=== PATIENT | female | born 1980 | race American Indian/Alaskan Native ===

== ENCOUNTER 2016-08-03 00:41 | Emergency (ER) | payer MEDICAID, OTHER ==
[2016-08-03 01:59] LABS: Basophils % (Auto) 1.2 % (0.0-1.8); Eosinophils % (Auto) 3.2 % (0.0-4.3); Hematocrit 31.6 % (30.3-42.9); Mean Corpuscular HGB Conc 32 % (30-34); Mean Corpuscular Volume 76 fl (79-97); Platelet Count 211 K/mm3 (140-440); Red Blood Count 4.17 M/mm3 (3.65-5.03); Red Cell Distribution Width 18.1 % (13.2-15.2)
[2016-08-03 02:01] LABS: Mean Corpuscular Hemoglobin 24 pg (28-32)
[2016-08-03 02:21] LABS: Bacteria,Urine 1+ /HPF (Negative); Bilirubin,Urine NEG (Negative); Blood,Urine LG (Negative); Ketones,Urine NEG (Negative); Leukocyte Esterase,Urine NEG (Negative); Mucus,Urine FEW /HPF; Nitrite,Urine NEG (Negative); Urobilinogen,Urine < 2.0 mg/dL (<2.0)
[2016-08-03 02:24] LABS: Albumin 3.4 g/dL (3.9-5); Albumin/Globulin Ratio 1.1 %; BUN/Creatinine Ratio 13.47; Bilirubin,Total 0.3 mg/dL (0.1-1.2); Calcium 8.9 mg/dL (8.4-10.2); Chloride 102.4 mmol/L (98-107); Potassium 3.9 mmol/L (3.6-5.0); Total Protein 6.5 g/dL (6.3-8.2)
[2016-08-03] MEDS ORDERED: CATAPRES ONE (05:30)
[2016-08-03] MEDS ORDERED: CATAPRES PO ONE (05:44)
[2016-08-03] MEDS ORDERED: APRESOLINE IV ONE (09:30)
[2016-08-03] MEDS ORDERED: DILAUDID IV ONE (09:31)
[2016-08-03] MEDS ORDERED: NACL 0.9% 1000 ML 1,000 ML IV ONE (09:31)
[2016-08-03] MEDS ORDERED: ZOFRAN IV ONE (09:31)
--- NOTE | 2016-08-03 09:32 | Emergency Department Report ---
ED General Adult HPI - General Chief complaint: Abdominal Pain Stated complaint: STOMACH PAIN Time Seen by Provider: 08/03/16 09:21 Source: patient Mode of arrival: Ambulatory Limitations: No Limitations - History of Present Illness Initial comments: PMD: Dr Flanagan Renal: Dr Senior This is a 35-year-old female. I evaluated her in the past. Past medical history includes hypertension, diabetes, obesity, seen in November at this facility, found to have renal insufficiency. Has a follow-up in July with a drilling machine operator by the name of Dr. Senior. The patient presents to the ER complaining of abdominal pain. Abdominal pain is mostly ventral and midline, and in the bilateral flanks. It does not radiate anywhere. It increases when she lays flat and supine, it decreases when she is sitting up. She vomited twice, nonbloody and nonbilious. No lower abdominal pain at this time, no vaginal bleeding, no vaginal discharge, denies irritative and obstructive urinary symptoms. No chest pain or shortness of breath. -: Gradual Location: abdomen Severity scale (0 -10): 10 Quality: aching Consistency: intermittent Improves with: other (as per history of present illness) Worsens with: other (as per history of present illness) Associated Symptoms: malaise, nausea/vomiting. denies: chest pain, cough, diaphoresis, fever/chills - Related Data Home Medications Medication Instructions Recorded Confirmed Last Taken Hydrochlorothiazide [HCTZ] 50 mg PO QDAY 08/03/16 08/03/16 Unknown cloNIDine [Catapres] 0.2 mg PO QHS 08/03/16 08/03/16 Unknown Previous Rx's Medication Instructions Recorded Last Taken Type Dicyclomine [Bentyl] 10 mg PO QID PRN #20 capsule 08/03/16 Unknown Rx Famotidine [Pepcid] 20 mg PO QDAY #30 tablet 08/03/16 Unknown Rx Ondansetron [Zofran Odt] 4 mg PO QID PRN #20 tab.rapdis 08/03/16 Unknown Rx amLODIPine [Norvasc] 5 mg PO DAILY #30 tab 08/03/16 Unknown Rx Allergies Allergy/AdvReac Type Severity Reaction Status Date / Time bee pollen Allergy Swelling Verified 11/30/15 02:31 peanut Allergy Swelling Verified 11/30/15 02:31 ED Review of Systems ROS: Stated complaint: STOMACH PAIN Other details as noted in HPI Constitutional: denies: malaise Eyes: denies: eye discharge ENT: denies: epistaxis Cardiovascular: denies: chest pain Gastrointestinal: abdominal pain Genitourinary: denies: urgency, dysuria Musculoskeletal: denies: back pain Skin: denies: lesions Neurological: denies: weakness Psychiatric: denies: anxiety ED Past Medical Hx - Past Medical History Previous Medical History?: Yes Hx Hypertension: Yes Hx Diabetes: Yes Hx COPD: Yes Additional medical history: Obesity. Abd Pn since Nov 2015 - Surgical History Past Surgical History?: Yes Additional Surgical History: C/S x3, HEMORRHOID SURGERY - Social History Smoking Status: Never Smoker Substance Use Type: None - Medications Home Medications: Home Medications Medication Instructions Recorded Confirmed Last Taken Type Dicyclomine [Bentyl] 10 mg PO QID PRN #20 capsule 08/03/16 Unknown Rx Famotidine [Pepcid] 20 mg PO QDAY #30 tablet 08/03/16 Unknown Rx Hydrochlorothiazide [HCTZ] 50 mg PO QDAY 08/03/16 08/03/16 Unknown History Ondansetron [Zofran Odt] 4 mg PO QID PRN #20 tab.rapdis 08/03/16 Unknown Rx amLODIPine [Norvasc] 5 mg PO DAILY #30 tab 08/03/16 Unknown Rx cloNIDine [Catapres] 0.2 mg PO QHS 08/03/16 08/03/16 Unknown History ED Physical Exam - General Limitations: No Limitations General appearance: alert, in no apparent distress, obese - Head Head exam: Present: atraumatic, normocephalic - Eye Eye exam: Present: normal appearance, EOMI. Absent: nystagmus - ENT ENT exam: Present: normal exam, normal orophraynx, mucous membranes moist, normal external ear exam - Neck Neck exam: Present: normal inspection, full ROM. Absent: tenderness, meningismus - Respiratory Respiratory exam: Present: normal lung sounds bilaterally. Absent: respiratory distress, wheezes, rales, rhonchi, stridor, decreased breath sounds - Cardiovascular Cardiovascular Exam: Present: regular rate, normal rhythm, normal heart sounds. Absent: bradycardia, tachycardia, irregular rhythm, systolic murmur, diastolic murmur, rubs, gallop - GI/Abdominal GI/Abdominal exam: Present: soft, tenderness, normal bowel sounds, other (there is mild midline ventral tenderness. There is no rebound, guarding or peritoneal signs. Patient has no right lower quadrant tenderness. There is no right upper quadrant tenderness. There is negative Santana sign. There is negative rovsigs sign.). Absent: distended, guarding, rebound, rigid, pulsatile mass - Extremities Exam Extremities exam: Present: normal inspection, full ROM, normal capillary refill. Absent: tenderness, pedal edema, joint swelling, calf tenderness - Back Exam Back exam: Present: normal inspection, full ROM. Absent: tenderness, CVA tenderness (R), CVA tenderness (L), muscle spasm, paraspinal tenderness, vertebral tenderness - Neurological Exam Neurological exam: Present: alert, oriented X3, normal gait, other (Extraocular movements intact. Tongue midline. No facial droop. Facial sensation intact to light touch in the V1, V2, V3 distribution bilaterally. 5 and 5 strength in 4 extremities.. Sensation is intact to light touch in 4 extremities. ). Absent: motor sensory deficit - Psychiatric Psychiatric exam: Present: normal affect, normal mood - Skin Skin exam: Present: warm, dry, intact, normal color. Absent: rash ED Course Vital Signs 08/03/16 08/03/16 08/03/16 00:50 05:19 05:30 Temperature 98.7 F Pulse Rate 101 H 101 H 101 H Respiratory 20 16 Rate Blood Pressure 235/172 235/160 Blood Pressure 204/144 [Right] O2 Sat by Pulse 100 99 Oximetry 08/03/16 08/03/16 08/03/16 10:02 10:03 10:46 Temperature Pulse Rate 85 Respiratory 16 18 Rate Blood Pressure Blood Pressure 201/144 188/121 [Right] O2 Sat by Pulse 98 98 Oximetry 08/03/16 12:50 Temperature Pulse Rate 91 H Respiratory 23 Rate Blood Pressure Blood Pressure 195/138 [Right] O2 Sat by Pulse 98 Oximetry - Reevaluation(s) Reevaluation #1: 08/03/16 09:54 Differential diagnosis: Obesity, constipation, ventral hernia, incidental worsening renal insufficiency, poorly controlled hypertension, hypertensive urgency Abdominal aortic aneurysm Assessment and plan: 35-year-old female who is found to have worsening renal insufficiency, elevated blood pressure, abdominal pain. She was given clonidine prior to my evaluation. A noncontrast CT scan of the abdomen and pelvis is ordered. Hydromorphone and hydralazine ordered for blood pressure and pain. Reassess after initial data points. Her blood pressure controls improved while in the emergency department, I will discuss with nephrology on- call to determine further management. Reevaluation #2: 08/03/16 11:53 Blood pressure is improved. Case is discussed with covering drilling machine operator, Dr. Ramos Recommends initiation of Norvasc, 5 mg daily, and states he can see the patient tomorrow in the office. Reevaluation #3: 08/03/16 11:57 Percent renal insufficiency is appreciated, patient was noted to have renal insufficiency in November 2015. Renal insufficiency appears to be subacute to chronic, and appears to be gradual. Given that patient has been given follow- up with her drilling machine operator tomorrow, I don't believe she requires admission to the hospital for this. Reevaluation #4: 08/03/16 12:39 CT scan negative. Patient resting comfortably. Patient will be discharged at this time. Instructed to follow-up with nephrology tomorrow. Return precautions are reviewed. ED Medical Decision Making - Lab Data Result diagrams: 08/03/16 01:30 08/03/16 01:30 Vital Signs 08/03/16 08/03/16 08/03/16 00:50 05:19 05:30 Temperature 98.7 F Pulse Rate 101 H 101 H 101 H Respiratory 20 16 Rate Blood Pressure 235/172 235/160 Blood Pressure 204/144 [Right] O2 Sat by Pulse 100 99 Oximetry Lab Results 08/03/16 08/03/16 08/03/16 Range/Units 01:30 01:30 01:30 WBC 6.0 (4.5-11.0) K/mm3 RBC 4.17 (3.65-5.03) M/mm3 Hgb 10.0 L (10.1-14.3) gm/dl Hct 31.6 (30.3-42.9) % MCV 76 L (79-97) fl MCH 24 L (28-32) pg MCHC 32 (30-34) % RDW 18.1 H (13.2-15.2) % Plt Count 211 (140-440) K/mm3 Lymph % (Auto) 25.5 (13.4-35.0) % Wood % (Auto) 6.6 (0.0-7.3) % Eos % (Auto) 3.2 (0.0-4.3) % Baso % (Auto) 1.2 (0.0-1.8) % Lymph # 1.5 (1.2-5.4) K/mm3 Wood # 0.4 (0.0-0.8) K/mm3 Eos # 0.2 (0.0-0.4) K/mm3 Baso # 0.1 (0.0-0.1) K/mm3 Seg Neutrophils % 63.5 (40.0-70.0) % Seg Neutrophils # 3.8 (1.8-7.7) K/mm3 Sodium 141 (137-145) mmol/L Potassium 3.9 (3.6-5.0) mmol/L Chloride 102.4 (98-107) mmol/L Carbon Dioxide 23 (22-30) mmol/L Anion Gap 20 mmol/L BUN 31 H (7-17) mg/dL Creatinine 2.3 H (0.7-1.2) mg/dL Estimated GFR 30 ml/min BUN/Creatinine Ratio 13.47 % Glucose 130 H (65-100) mg/dL Calcium 8.9 (8.4-10.2) mg/dL Magnesium (1.7-2.3) mg/dL Total Bilirubin 0.3 (0.1-1.2) mg/dL AST 16 (5-40) units/L ALT 18 (7-56) units/L Alkaline Phosphatase 75 (35-129) units/L Total Protein 6.5 (6.3-8.2) g/dL Albumin 3.4 L (3.9-5) g/dL Albumin/Globulin Ratio 1.1 % Lipase 50 (13-60) units/L HCG, Qual Negative (Negative) Urine Color (Yellow) Urine Turbidity (Clear) Urine pH (5.0-7.0) Ur Specific [place] (1.003-1.030) Urine Protein (Negative) mg/dL Urine Glucose (UA) (Negative) mg/dL Urine Ketones (Negative) mg/dL Urine Blood (Negative) Urine Nitrite (Negative) Urine Bilirubin (Negative) Urine Urobilinogen (<2.0) mg/dL Ur Leukocyte Esterase (Negative) Urine WBC (Auto) (0.0-6.0) /HPF Urine RBC (Auto) (0.0-6.0) /HPF U Epithel Cells (Auto) (0-13.0) /HPF Urine Bacteria (Auto) (Negative) /HPF Urine Mucus /HPF 08/03/16 08/03/16 Range/Units 01:30 Unknown WBC (4.5-11.0) K/mm3 RBC (3.65-5.03) M/mm3 Hgb (10.1-14.3) gm/dl Hct (30.3-42.9) % MCV (79-97) fl MCH (28-32) pg MCHC (30-34) % RDW (13.2-15.2) % Plt Count (140-440) K/mm3 Lymph % (Auto) (13.4-35.0) % Wood % (Auto) (0.0-7.3) % Eos % (Auto) (0.0-4.3) % Baso % (Auto) (0.0-1.8) % Lymph # (1.2-5.4) K/mm3 Wood # (0.0-0.8) K/mm3 Eos # (0.0-0.4) K/mm3 Baso # (0.0-0.1) K/mm3 Seg Neutrophils % (40.0-70.0) % Seg Neutrophils # (1.8-7.7) K/mm3 Sodium (137-145) mmol/L Potassium (3.6-5.0) mmol/L Chloride (98-107) mmol/L Carbon Dioxide (22-30) mmol/L Anion Gap mmol/L BUN (7-17) mg/dL Creatinine (0.7-1.2) mg/dL Estimated GFR ml/min BUN/Creatinine Ratio % Glucose (65-100) mg/dL Calcium (8.4-10.2) mg/dL Magnesium 2.0 (1.7-2.3) mg/dL Total Bilirubin (0.1-1.2) mg/dL AST (5-40) units/L ALT (7-56) units/L Alkaline Phosphatase (35-129) units/L Total Protein (6.3-8.2) g/dL Albumin (3.9-5) g/dL Albumin/Globulin Ratio % Lipase (13-60) units/L HCG, Qual (Negative) Urine Color Yellow (Yellow) Urine Turbidity Clear (Clear) Urine pH 5.0 (5.0-7.0) Ur Specific [place] 1.023 (1.003-1.030) Urine Protein 100 mg/dl (Negative) mg/dL Urine Glucose (UA) Neg (Negative) mg/dL Urine Ketones Neg (Negative) mg/dL Urine Blood Lg (Negative) Urine Nitrite Neg (Negative) Urine Bilirubin Neg (Negative) Urine Urobilinogen < 2.0 (<2.0) mg/dL Ur Leukocyte Esterase Neg (Negative) Urine WBC (Auto) 46.0 H (0.0-6.0) /HPF Urine RBC (Auto) 72.0 (0.0-6.0) /HPF U Epithel Cells (Auto) 4.0 (0-13.0) /HPF Urine Bacteria (Auto) 1+ (Negative) /HPF Urine Mucus Few /HPF - Radiology Data Radiology results: report reviewed, image reviewed Noncontrast CT scan of the abdomen and pelvis negative for acute disease. Normal appendix. No evidence of inflammatory process. The appendix is visualized. There is a fat containing umbilical hernia. Critical care attestation.: If time is entered above; I have spent that time in minutes in the direct care of this critically ill patient, excluding procedure time. ED Disposition Clinical Impression: Abdominal pain, Elevated blood pressure Disposition: DISCHARGED TO HOME OR SELFCARE Is pt being admited?: No Does the pt Need Aspirin: No Condition: Good Instructions: Abdominal Pain (ED), Hypertension (ED) Additional Instructions: Take the medications as directed. Follow up with the listed drilling machine operator, Dr. Armstrong tomorrow in the office. I have specifically spoken to the drilling machine operator about your case, and he would like to see you in the office tomorrow. you may show up at any time at 2:00 or afterwards, or contact the office later on today or early tomorrow morning, and inform the office staff that the kidney doctor wants to see you. Please note that your blood pressure was very elevated, and your kidney function is worsening in the past. It is very important to take the blood pressure medications. Long-term complications of hypertension/elevated blood pressure includes stroke, heart attack, disability, , paralysis, permanent loss of quality of life. Please return to the ER right away with new pain, worsened pain, migration of pain, fevers or chills, nausea or vomiting, inability to tolerate liquid feeds. Prescriptions: amLODIPine [Norvasc] 5 mg PO DAILY #30 tab Dicyclomine [Bentyl] 10 mg PO QID PRN #20 capsule PRN Reason: Pain Famotidine [Pepcid] 20 mg PO QDAY #30 tablet Ondansetron [Zofran Odt] 4 mg PO QID PRN #20 tab.rapdis PRN Reason: Nausea Referrals: Corina GUTIÉRREZ [Other] - 3-5 Days CHRISSIE FAJARDO MD [Staff Physician] - 3-5 Days
--- NOTE | 2016-08-03 10:01 | Admit Criteria Form ---
Admission Criteria Documentation: HYPERTENSION Clinical Indications for Admission to Inpatient Care ( Place "X" for any and all applicable criteria): Admission is indicated for ANY ONE of the following(1)(2)(3)(4): [ ]I. Hypertensive emergency, with evidence of acute and progressing target organ disease as indicated by ANY ONE of the following: [ ]a) Hypertensive encephalopathy (eg, confusion, altered mental status) [ ]b) Cerebral infarction [ ]c) Intracranial hemorrhage [ ]d) Myocardial ischemia or infarction [ ]e) Pulmonary edema [ ]f) Aortic dissection [ ]g) Seizure [ ]h) Acute renal insufficiency [ ]i) Papilledema [ ]j) Microangiopathic hemolytic anemia [ ]II. Adrenergic crisis (eg, severe hypertension due to pheochromocytoma crisis, cocaine or amphetamine intoxication, or clonidine withdrawal) [ ]III. Severe hypertension (SBP greater than 180 mmHg or DBP greater than 110 mmHg or greater than the 95th percentile for age, gender, and height in pediatric patients) that cannot be controlled (eg, to SBP less than 160 mmHg and DBP less than 100 mmHg in adults) by treatment with oral medication in emergency department or observation care Extended stay beyond goal length of stay may be needed for(11)(12)(13): [ ]a) Persistent hypertensive encephalopathy [ ]b) Continuation of pulmonary edema [ ]c) Recurring or persistent severe hypertension [ ]d) Target organ damage (eg, angina, stroke, aortic dissection) [ ]e) Associated renal insufficiency The original [employer] content created by [facility] [employer] has been revised. The portions of the content which have been revised are identified through the use of italic text or in bold, and [facility] has neither reviewed nor approved the modified material. All other unmodified content is copyright [employer]. Please see references footnoted in the original [employer] edition 2016
[2016-08-03] MEDS ORDERED: NORVASC PO ONE (11:35)
--- NOTE | 2016-08-03 12:30 | Cat Scan Report ---
CT abdomen and pelvis without contrast: Abdominal pain. Transverse images were obtained from the lower chest to the ischium with coronal and sagittal 2-D reformatted images. The visualized lungs are unremarkable. The abdominal and retroperitoneal structures appear normal. The abdominal aorta is normal in size and contour. The opacified bowel and mesentery appear normal with no evidence of inflammatory process. The appendix is visualized. No adenopathy identified. There is a fat containing umbilical hernia. Sections through the pelvis demonstrate normal sized reproductive organs. No fluid noted. Impressions: No pathology identified.
[2016-08-03 13:35] VITALS: BP 195/138
== END 2016-08-03 12:50 | disposition home or self-care (01) ==
LOC: ED 00:41
DX: R10.9 Unspecified abdominal pain (principal); I10 Essential (primary) hypertension; E11.9 Type 2 diabetes mellitus without complications; J44.9 Chronic obstructive pulmonary disease, unspecified; Z91.010 Allergy to peanuts
CPT/HCPCS: 36415; 74176; 80053; 81001; 83690; 83735; 84703; 85025; 96361; 96374; 96375; 99284; J0360; J1170; J2405; J7030